=== PATIENT | male | born 2000 | race Caucasian/White ===

== ENCOUNTER 2020-07-28 12:04 | Emergency (ER) | payer OTHER, SELFPAY ==
[2020-07-28 12:09] VITALS: BP 143/89; PULSE 98; RESP 18; TEMP 37.2; O2SAT 100
--- NOTE | 2020-07-28 12:57 | ED.WOUNDLAC ---
HPI - Wound/Laceration General Chief Complaint: Wound/Laceration Stated Complaint: head lac Time Seen by Provider: 07/28/20 12:39 Source: patient Mode of arrival: ambulatory Limitations: no limitations History of Present Illness HPI narrative: Patient tripped while carrying boxes, fell, macerated left side of the face immediately in front of left ear, denies loss of consciousness, denies trouble opening his mouth or moving his jaw from side to side. Patient denies any fever, chills, nausea, vomiting, chest pain, abdominal pain, back pain, headache.. Related Data Allergies Allergy/AdvReac Type Severity Reaction Status Date / Time No Known Allergies Allergy Verified 07/28/20 12:23 Review of Systems Review of Systems: Narrative: CONSTITUTIONAL: Denies fever, chills, or sweats. EYES: Denies visual changes, redness, or discharge. ENT: Denies rhinorrhea, congestion, sore throat, or otalgia. CARDIOVASCULAR: Denies chest pain, palpitations, or edema. RESPIRATORY: Denies cough or dyspnea. GASTROINTESTINAL: Denies abdominal pain, nausea, vomiting, or diarrhea. GENITOURINARY: Denies dysuria or hematuria. SKIN: Denies rash or itching. MUSCULOSKELETAL: Denies back pain, joint pain, or myalgia. NEUROLOGIC: Denies headache, numbness, or weakness. PSYCHIATRIC: Denies anxiety or depression. [facility] Social History Social History (Updated 07/28/20 @ 12:59 by Josephine Luna MD) Social History: Patient denies smoking or drinking Second hand tobacco smoke exposure: No Exam Narrative: Exam Narrative: General appearance: Well-developed, well-nourished Skin: Normal color. 2.5 cm laceration, subcutaneous in front of left ear Head: Normocephalic, nontraumatic Neck: Supple, nontender Chest and respiratory: Airway patent, no respiratory distress, no accessory muscle use Heart: Regular rate/rhythm Course Course Emergency Course: Improved Vital Signs Vital signs: Vital Signs Temperature 37.2 C 07/28/20 12:09 Pulse Rate 98 07/28/20 12:09 Respiratory Rate 18 07/28/20 12:09 Blood Pressure 143/89 H 07/28/20 12:09 Pulse Oximetry 100 07/28/20 12:09 Temperature 37.2 C 07/28/20 12:09 Pulse Rate 98 07/28/20 12:09 Respiratory Rate 18 07/28/20 12:09 Blood Pressure 143/89 H 07/28/20 12:09 Pulse Oximetry 100 07/28/20 12:09 Procedures Laceration Laceration 1: Date: 07/28/20 Time: 13:02 Site: face and other (In front of left ear) Side (If applicable): left Size (cm): 2.5 Description: linear Depth: simple, single layer Local Anesthetic: none Pre-repair: wound explored and other (Betadine) ====== Skin Level ====== Skin layer closed with: dermabond ====== Subcutaneous Layer ====== ====== Muscle Layer ====== ====== Tendon Layer ====== MDM - Wound/Laceration MDM Narrative Medical decision making narrative: Subcutaneous laceration, Dermabond will be appropriate. Patient is up-to-date for tetanus shot, the corner of the table was probably not clean enough. Patient will be discharged on Keflex Differential Diagnosis Differential diagnosis: Likely laceration Critical Care Time Critical Care Time Critical Care Time: No Discharge Plan Discharge Clinical Impression: Laceration Patient Disposition: Home, Self-Care Condition: Stable Instructions: Laceration (ED), Skin Adhesive Care (ED) Additional Instructions: Return if symptoms are worsening , call your family physician for appointment, take Tylenol as as needed for aches and pain, continue home medications. Prescriptions: New cephalexin [Keflex] 500 mg capsule 500 m
[2020-07-28 13:15] VITALS: BP 126/80; PULSE 82; RESP 16; O2SAT 98
== END 2020-07-28 13:17 | disposition home or self-care (01) ==
PROVIDERS: Emergency Provider Emergency Medicine
DX: S01.412A Laceration without foreign body of left cheek and temporomandibular area, initial encounter (principal); W01.0XXA Fall on same level from slipping, tripping and stumbling without subsequent striking against object, initial encounter
CPT/HCPCS: 12011; 99283